=== PATIENT | male | born 1945 | race Caucasian/White ===

== ENCOUNTER 2018-11-08 10:21 | Observation (INO) ==
[2018-11-08] MEDS ORDERED: ASPIRIN 325 MG TABLET PO STA (11:05)
[2018-11-08] MEDS ORDERED: METOPROLOL TARTRATE 5 MG/5 ML VIAL IV STA (11:05)
[2018-11-08] MEDS ORDERED: SODIUM CHLORIDE 0.9% 1,000 ML IV STA (11:05)
[2018-11-08 11:16] LABS: Basophils % 0.2 % (0.0-0.8); Eosinophils # 0.1 10*3/uL (0.0-0.87); Eosinophils % 1.7 % (0.00-10.9); Hematocrit 40.3 VOL% (42.0-52.0); Hemoglobin 12.6 GM/DL (14.0-18.0); Immature Granulocytes % 0.2 %; Immature Granulocytes Absolute 0.01 #; Lymphocytes # 1.5 10*3/uL (1.4-4.0); Mean Corpuscular HGB Conc 31.3 GM/DL (32-36); Mean Corpuscular Volume 91.8 FL (87-102); Mean Platelet Volume 9.5 FL (9.6-12.0); Monocytes % 10.7 % (1.7-12.7); Neutrophils % 56.2 % (38.7-73.9); Platelet Count 212 T/CUMM (130-400); Red Blood Count 4.39 MC/CUMM (3.8-5.5); White Blood Count 4.8 T/CUMM (4-12)
[2018-11-08 11:22] LABS: INR 0.9; PT Patient Result 9.9 SECS; Partial Thromboplastin Time 25.7 SECS (0-40)
[2018-11-08 11:46] LABS: Albumin 3.8 G/DL (3.4-5.0); Bilirubin,Total 0.8 MG/DL (0.2-1.0); Calcium 8.3 MG/DL (8.5-10.1); Osmolality,Calculated 283.4 MOS/KG (273-304); Total Protein 6.6 G/DL (6.4-8.3)
[2018-11-08 13:10] LABS: Apearance,Urine CLEAR (Clear); Bilirubin,Urine Negative (Negative); Blood, Urine Negative (Negative); Glucose,Urine (UA) 50 mg/dL (Negative); Ketones,Urine Negative (Negative); Mucus,Urine Occasional /LPF (Occasional); Nitrite,Urine Negative (Negative); Protein,Urine 30 MG/DL; RBC,Urine 1 /HPF (0-4); Urine Color Yellow (Yellow); Urine Specific Gravity 1.045 (1.001-1.035); Urine Urobilinogen < 2.0 EU/DL (0.2-1.0); WBC,Urine <1 /HPF (0-6)
[2018-11-08 13:28] LABS: Barbiturates Screen,Urine Negative (Negative); Benzodiazepines Screen,Urine Negative (Negative); Cannabinoid Screen,Urine Negative (Negative); Opiate Screen,Urine Negative (Negative); Phencyclidine Screen,Urine Negative (Negative)
[2018-11-08] MEDS ORDERED: PROMETHAZINE 25 MG/1 ML VIAL IM PRN (15:36)
[2018-11-08] MEDS ORDERED: ONDANSETRON 4 MG/2 ML VIAL IV PRN (15:36)
[2018-11-08] MEDS ORDERED: LACTULOSE 20 GM/30 ML UDCUP PO PRN (15:36)
[2018-11-08] MEDS ORDERED: ACETAMINOPHEN 325 MG TABLET PO PRN (15:36)
[2018-11-08] MEDS ORDERED: hydrALAZINE 20 MG/1 ML VIAL IV PRN (15:40)
[2018-11-08] MEDS ORDERED: GLUCAGON 1 MG VIAL IM PRN (15:41)
[2018-11-08] MEDS ORDERED: DEXTROSE 50% 25 GM/50 ML VIAL IV PRN (15:41)
[2018-11-08] MEDS ORDERED: LISINOPRIL/HCTZ 20-25 MG TABLET PO SCH (17:00)
[2018-11-08] MEDS ORDERED: oxyCODONE IR 5 MG TABLET PO PRN (17:26)
[2018-11-08] MEDS ORDERED: ALBUTEROL 2.5 MG/3 ML NEB RESP TX PRN (17:26)
[2018-11-08] MEDS: amLODIPine 5 MG TABLET PO SCH (18:11)
[2018-11-08] MEDS: INSULIN LISPRO 100 UNIT/ML SUBCUT SCH ×2 (18:15→21:52)
[2018-11-08] MEDS ORDERED: PNEUMOCOCCAL VACCINE (13 VALENT) 0.5 ML SYRINGE IM ONE (19:43)
[2018-11-08] MEDS ORDERED: ENOXAPARIN 40 MG/0.4 ML SYRINGE SUBCUT SCH (21:00)
[2018-11-08] MEDS: MORPHINE 4 MG/1 ML VIAL IV PRN (21:40)
[2018-11-08] MEDS: CARVEDILOL 12.5 MG TABLET PO SCH (21:52)
[2018-11-08] MEDS: GABAPENTIN 600 MG TABLET PO SCH (21:53)
[2018-11-08] MEDS: ZALEPLON 5 MG CAPSULE PO SCH (21:54)
[2018-11-08] MEDS: PANTOPRAZOLE 40 MG TABLET PO SCH (21:54)
[2018-11-09] MEDS: ZALEPLON 5 MG CAPSULE PO SCH (01:54)
[2018-11-09] MEDS: MORPHINE 4 MG/1 ML VIAL IV PRN (05:19)
[2018-11-09 05:23] LABS: Basophils % 0.2 % (0.0-0.8); Eosinophils # 0.1 10*3/uL (0.0-0.87); Eosinophils % 2.6 % (0.00-10.9); Hematocrit 38.4 VOL% (42.0-52.0); Hemoglobin 11.9 GM/DL (14.0-18.0); Immature Granulocytes % 0.4 %; Immature Granulocytes Absolute 0.02 #; Lymphocytes # 1.7 10*3/uL (1.4-4.0); Lymphocytes % 35.9 % (21.2-54.2); Mean Corpuscular Volume 92.1 FL (87-102); Mean Platelet Volume 9.9 FL (9.6-12.0); Monocytes % 13.3 % (1.7-12.7); Neutrophils % 47.6 % (38.7-73.9); Platelet Count 208 T/CUMM (130-400); Red Blood Count 4.17 MC/CUMM (3.8-5.5); Red Cell Distribution Width 15.3 % (9.3-17.3); White Blood Count 4.6 T/CUMM (4-12)
[2018-11-09 06:03] LABS: Calcium 8.1 MG/DL (8.5-10.1); Osmolality,Calculated 280.4 MOS/KG (273-304); Risk Ratio 4.13
[2018-11-09 07:58] VITALS: BP 143/82
[2018-11-09] MEDS ORDERED: ASPIRIN EC 81 MG TABLET PO SCH (09:00)
[2018-11-09] MEDS ORDERED: sitaGLIPtin 25 MG TABLET PO SCH (09:00)
[2018-11-09] MEDS ORDERED: KETOROLAC 30 MG/1 ML VIAL IM ONE (09:54)
[2018-11-09] MEDS ORDERED: METHOCARBAMOL 500 MG TABLET PO SCH (09:55)
[2018-11-09] MEDS: CARVEDILOL 12.5 MG TABLET PO SCH (10:44)
[2018-11-09] MEDS: amLODIPine 5 MG TABLET PO SCH (10:44)
[2018-11-09] MEDS: PANTOPRAZOLE 40 MG TABLET PO SCH (10:44)
[2018-11-09] MEDS: GABAPENTIN 600 MG TABLET PO SCH (10:44)
[2018-11-09] MEDS: INSULIN LISPRO 100 UNIT/ML SUBCUT SCH ×2 (10:48→14:07)
[2018-11-09] MEDS ORDERED: ROSUVASTATIN 20 MG TABLET PO SCH (21:00)
== END 2018-11-09 13:20 | disposition home or self-care (01) ==
LOC: N.ED 10:21 → N.EDINP 10:21 → N.TELEN 16:36
PROVIDERS: ADMIT Internal Medicine; ATTEND Internal Medicine